=== PATIENT | male | born 1965 | race Caucasian/White ===

== ENCOUNTER 2019-03-23 21:37 | Observation (INO) ==
[2019-03-23] MEDS ORDERED: Isovue-370 500 ML BOTTLE IVP ONE (22:06)
[2019-03-23] MEDS ORDERED: Famotidine 20 MG/2 ML VIAL IVP ONE (22:08)
[2019-03-23] MEDS ORDERED: methylPREDNISolone 125 MG/2 ML VIAL IVP ONE (22:08)
[2019-03-23 22:59] LABS: Basophils # 0.1 K/mcL (0.0-0.2); Basophils % 0.6 %; Eosinophils # 0.5 K/mcL (0.0-0.6); Eosinophils % 5.4 %; Hematocrit 48.8 % (37.5-50.1); Hemoglobin 16.4 g/dL (12.9-16.9); Immature Granulocytes % 0.4 % (0-4); Lymphocytes # 3.1 K/mcL (0.6-4.6); Lymphocytes % 34.3 %; Mean Corpuscular HGB Conc 33.6 g/dL (31.6-35.5); Mean Corpuscular Hemoglobin 30.4 pg (28.0-33.3); Mean Corpuscular Volume 90.4 fL (83.0-100.0); Mean Platelet Volume 9.5 fL (9.4-12.4); Monocytes # 0.6 K/mcL (0.0-1.3); Monocytes % 6.3 %; Neutrophils # 4.8 K/mcL (1.6-8.9); Platelet Count 258 K/mcL (140-400); Red Cell Distribution Width 12.9 % (11.5-14.5); White Blood Count 9.1 K/mcL (4.3-11.1)
[2019-03-23 23:18] LABS: BUN/Creatinine Ratio 13 (6-26); Blood Urea Nitrogen 12 mg/dL (6-20); C-Reactive Protein 12 mg/L (Less than 10); Calcium 8.5 mg/dL (8.6-10.3); Carbon Dioxide 23 mEq/L (23-29); Chloride 106 mEq/L (98-107); Glucose 85 mg/dL (70-105); Osmolality,Calculated 289 (280-300); Potassium 3.8 mEq/L (3.5-5.1); Sodium 140 mEq/L (136-145); eGFR For African Americans > 60 (> 60); eGFR For Non-African Americans > 60 (> 60)
[2019-03-23] MEDS ORDERED: 0.9 % Sodium Chloride 1,000 ML IVC ONE (23:32)
[2019-03-24] MEDS ORDERED: Piperacillin/Tazobactam 3.375 GM in 0.9 % Sodium Chloride Mini Bag 100 ML IVPB ONE (00:22)
[2019-03-24] MEDS ORDERED: Naloxone 0.4 MG/ML INJ IVP PRN (02:48)
[2019-03-24] MEDS ORDERED: hydrOXYzine pamoate 25 MG CAPSULE PO PRN (02:50)
[2019-03-24 05:42] LABS: Hematocrit 48.9 % (37.5-50.1); Hemoglobin 16.4 g/dL (12.9-16.9); Mean Corpuscular HGB Conc 33.5 g/dL (31.6-35.5); Mean Corpuscular Hemoglobin 30.3 pg (28.0-33.3); Mean Corpuscular Volume 90.4 fL (83.0-100.0); Mean Platelet Volume 9.8 fL (9.4-12.4); Platelet Count 269 K/mcL (140-400); Red Blood Count 5.41 M/mcL (4.19-5.50); Red Cell Distribution Width 12.9 % (11.5-14.5); White Blood Count 7.6 K/mcL (4.3-11.1)
[2019-03-24 05:58] LABS: BUN/Creatinine Ratio 16 (6-26); Blood Urea Nitrogen 14 mg/dL (6-20); Calcium 8.7 mg/dL (8.6-10.3); Carbon Dioxide 24 mEq/L (23-29); Chloride 108 mEq/L (98-107); Glucose 147 mg/dL (70-105); Osmolality,Calculated 291 (280-300); Potassium 4.5 mEq/L (3.5-5.1); Sodium 139 mEq/L (136-145); eGFR For African Americans > 60 (> 60); eGFR For Non-African Americans > 60 (> 60)
[2019-03-24] MEDS: Piperacillin/Tazobactam 3.375 GM in 0.9 % Sodium Chloride Mini Bag 100 ML IVPB SCH ×2 (09:06→19:55)
[2019-03-24] MEDS: Gabapentin 300 MG CAPSULE PO SCH ×3 (09:06→21:06)
[2019-03-24] MEDS: BuPROPion XL (24 HR) 150 MG TABLET PO SCH (09:06)
[2019-03-24] MEDS: (Breo Ellipta 200-25 Mcg Inh) IH SCH (09:45)
[2019-03-24] MEDS ORDERED: *HR* LORazepam 1 MG TABLET PO PRN (19:05)
[2019-03-24] MEDS ORDERED: BuPROPion XL (24 HR) 150 MG TABLET PO SCH (21:00)
[2019-03-25] MEDS: Piperacillin/Tazobactam 3.375 GM in 0.9 % Sodium Chloride Mini Bag 100 ML IVPB SCH ×2 (08:57)
[2019-03-25] MEDS: Gabapentin 300 MG CAPSULE PO SCH ×2 (08:58→14:42)
[2019-03-25] MEDS: BuPROPion XL (24 HR) 150 MG TABLET PO SCH (08:59)
[2019-03-25] MEDS: (Breo Ellipta 200-25 Mcg Inh) IH SCH (09:22)
[2019-03-25 10:41] VITALS: BP 122/83
[2019-03-25] MEDS ORDERED: FLU Vac QV 19-20 (6Month+)/PF 0.5 ML SYRINGE IM ONE (12:44)
[2019-03-25] MEDS ORDERED: Aminoglycoside Consult 1 EACH MC ONE (15:49)
== END 2019-03-25 15:50 | disposition home or self-care (01) ==
LOC: 3ANU 21:37 → EMEROOARM 21:37 → SUATTDRO 03-24 01:47 → 3ANU 03-24 02:23
PROVIDERS: ADMIT Internal Medicine; ATTEND Student in an Organized Health Care Education/Training Program

== ENCOUNTER 2019-05-29 14:44 | Observation (INO) ==
[2019-05-29] MEDS ORDERED: Ampicillin/Sulbactam 3,000 MG in 0.9 % Sodium Chloride 100 ML IVPB ONE (16:56)
[2019-05-29] MEDS ORDERED: Vancomycin 1,000 MG VIAL IVPB ONE (16:56)
[2019-05-29 17:26] LABS: Basophils % 0.4 %; Eosinophils # 0.4 K/mcL (0.0-0.6); Eosinophils % 5.7 %; Hematocrit 48.6 % (37.5-50.1); Hemoglobin 16.5 g/dL (12.9-16.9); Immature Granulocytes % 0.1 % (0-4); Lymphocytes # 2.4 K/mcL (0.6-4.6); Lymphocytes % 32.7 %; Mean Corpuscular Hemoglobin 30.4 pg (28.0-33.3); Mean Corpuscular Volume 89.5 fL (83.0-100.0); Mean Platelet Volume 9.8 fL (9.4-12.4); Monocytes # 0.6 K/mcL (0.0-1.3); Monocytes % 8.7 %; Neutrophils # 3.8 K/mcL (1.6-8.9); Platelet Count 248 K/mcL (140-400); Red Blood Count 5.43 M/mcL (4.19-5.50); Red Cell Distribution Width 12.9 % (11.5-14.5); Segmented Neutrophils % 52.4 %; White Blood Count 7.3 K/mcL (4.3-11.1)
[2019-05-29 17:44] LABS: BUN/Creatinine Ratio 20 (6-26); Blood Urea Nitrogen 18 mg/dL (6-20); Calcium 9.2 mg/dL (8.6-10.3); Carbon Dioxide 26 mEq/L (23-29); Chloride 104 mEq/L (98-107); Glucose 91 mg/dL (70-105); Osmolality,Calculated 285 (280-300); Potassium 3.9 mEq/L (3.5-5.1); Sodium 137 mEq/L (136-145); eGFR For African Americans > 60 (> 60); eGFR For Non-African Americans > 60 (> 60)
[2019-05-29] MEDS ORDERED: hydrOXYzine pamoate 25 MG CAPSULE PO PRN (21:57)
[2019-05-29] MEDS ORDERED: Acetaminophen 325 MG TABLET PO PRN (22:00)
[2019-05-29] MEDS: Gabapentin 300 MG CAPSULE PO SCH (23:14)
[2019-05-29] MEDS: Melatonin 3 MG TABLET PO PRN (23:15)
[2019-05-30] MEDS: Ipratropium/Albuterol Neb 3 ML IH PRN ×2 (05:03→10:44)
[2019-05-30] MEDS ORDERED: BUSPIRONE HCL PO SCH (09:00)
[2019-05-30] MEDS: Gabapentin 300 MG CAPSULE PO SCH ×3 (09:22→21:44)
[2019-05-30] MEDS: Doxycycline 100 MG CAPSULE PO SCH ×2 (09:23→21:43)
[2019-05-30] MEDS: Budesonide/Formoterol 80/4.5 1 PUFF INH IH SCH (10:34)
[2019-05-30] MEDS: Piperacillin/Tazobactam 3.375 GM in 0.9 % Sodium Chloride Mini Bag 100 ML IVPB SCH ×2 (13:01→21:44)
[2019-05-30 13:21] LABS: Amphetamine Screen,Urine Negative ng/mL (Cutoff=1000); Barbiturate Screen,Urine Negative ng/mL (Cutoff=200); Benzodiazepines Screen,Urine Negative ng/mL (Cutoff=200); Cannabinoid Screen,Urine Negative ng/mL (Cutoff = 50); Cocaine Screen,Urine Negative ng/mL (Cutoff= 300); Opiate Screen,Urine Positive ng/mL (Cutoff=300); Phencyclidine Screen,Urine Negative ng/mL (Cutoff=25)
[2019-05-30] MEDS ORDERED: BuPROPion XL (24 HR) 150 MG TABLET PO SCH (21:00)
[2019-05-30] MEDS: Melatonin 3 MG TABLET PO PRN (21:43)
[2019-05-31 01:58] LABS: Basophils % 0.6 %; Eosinophils # 0.4 K/mcL (0.0-0.6); Eosinophils % 6.3 %; Hematocrit 46.6 % (37.5-50.1); Hemoglobin 15.5 g/dL (12.9-16.9); Immature Granulocytes % 0.1 % (0-4); Lymphocytes # 2.5 K/mcL (0.6-4.6); Lymphocytes % 37.8 %; Mean Corpuscular HGB Conc 33.3 g/dL (31.6-35.5); Mean Corpuscular Hemoglobin 30.3 pg (28.0-33.3); Mean Platelet Volume 10.7 fL (9.4-12.4); Monocytes # 0.6 K/mcL (0.0-1.3); Monocytes % 8.3 %; Neutrophils # 3.2 K/mcL (1.6-8.9); Platelet Count 248 K/mcL (140-400); Red Blood Count 5.12 M/mcL (4.19-5.50); Red Cell Distribution Width 12.9 % (11.5-14.5); Segmented Neutrophils % 46.9 %; White Blood Count 6.7 K/mcL (4.3-11.1)
[2019-05-31 02:17] LABS: BUN/Creatinine Ratio 15 (6-26); Blood Urea Nitrogen 16 mg/dL (6-20); Calcium 8.7 mg/dL (8.6-10.3); Carbon Dioxide 27 mEq/L (23-29); Chloride 107 mEq/L (98-107); Glucose 121 mg/dL (70-105); Magnesium 2.2 mg/dL (1.6-2.6); Osmolality,Calculated 294 (280-300); Phosphorous 4.1 mg/dL (2.7-4.5); Sodium 141 mEq/L (136-145); eGFR For African Americans > 60 (> 60); eGFR For Non-African Americans > 60 (> 60)
[2019-05-31] MEDS: Piperacillin/Tazobactam 3.375 GM in 0.9 % Sodium Chloride Mini Bag 100 ML IVPB SCH (06:09)
[2019-05-31 06:51] VITALS: BP 129/89
[2019-05-31] MEDS ORDERED: BuPROPion XL (24 HR) 150 MG TABLET PO SCH (09:00)
[2019-05-31] MEDS: Doxycycline 100 MG CAPSULE PO SCH (09:21)
[2019-05-31] MEDS: Gabapentin 300 MG CAPSULE PO SCH (09:21)
[2019-05-31] MEDS ORDERED: Vancomycin 1 EACH in 0.9 % Sodium Chloride 500 ML IVPB SCH (10:30)
[2019-05-31] MEDS: Budesonide/Formoterol 80/4.5 1 PUFF INH IH SCH (10:33)
[2019-05-31] MEDS ORDERED: Aminoglycoside Consult 1 EACH MC ONE (12:54)
== END 2019-05-31 12:55 | disposition home or self-care (01) ==
LOC: EMEROOARM 14:44 → 3ANU 14:44
PROVIDERS: ADMIT Internal Medicine; ATTEND Internal Medicine

== ENCOUNTER 2019-06-22 20:54 | Observation (INO) ==
[2019-06-22] MEDS ORDERED: Isovue-370 500 ML BOTTLE IVP ONE ×2 (21:17→21:46)
[2019-06-22 21:47] LABS: Basophils % 0.3 %; Eosinophils # 0.4 K/mcL (0.0-0.6); Eosinophils % 3.8 %; Hematocrit 50.7 % (37.5-50.1); Hemoglobin 17.9 g/dL (12.9-16.9); Immature Granulocytes % 0.3 % (0-4); Lymphocytes # 3.1 K/mcL (0.6-4.6); Lymphocytes % 29.3 %; Mean Corpuscular HGB Conc 35.3 g/dL (31.6-35.5); Mean Corpuscular Hemoglobin 30.6 pg (28.0-33.3); Mean Corpuscular Volume 86.7 fL (83.0-100.0); Mean Platelet Volume 9.8 fL (9.4-12.4); Monocytes # 0.6 K/mcL (0.0-1.3); Monocytes % 5.2 %; Neutrophils # 6.5 K/mcL (1.6-8.9); Platelet Count 286 K/mcL (140-400); Red Blood Count 5.85 M/mcL (4.19-5.50); Red Cell Distribution Width 13.1 % (11.5-14.5); Segmented Neutrophils % 61.1 %; White Blood Count 10.7 K/mcL (4.3-11.1)
[2019-06-22 21:54] LABS: Prothrombin Time 11.1 Seconds (9.4-12.1)
[2019-06-22 21:56] LABS: Activated Partial Thrombo Time 30.8 Seconds (26.0-36.0)
[2019-06-22 22:12] LABS: Alanine Aminotransferase 30 Units/L (7-52); Albumin 4.5 g/dL (3.5-5.7); Albumin/Globulin Ratio 1.7 (1.1-2.2); Alkaline Phosphatase 98 Units/L (34-104); Aspartate Amino Transferase 22 Units/L (13-39); BUN/Creatinine Ratio 19 (6-26); Bilirubin,Direct 0.1 mg/dL (0.0-0.2); Bilirubin,Indirect 0.3 mg/dL (0.0-1.0); Bilirubin,Total 0.4 mg/dL (0.3-1.0); Blood Urea Nitrogen 21 mg/dL (6-20); Calcium 9.4 mg/dL (8.6-10.3); Carbon Dioxide 22 mEq/L (23-29); Chloride 105 mEq/L (98-107); Globulin 2.6 g/dL (2.4-3.5); Glucose 146 mg/dL (70-105); Magnesium 1.9 mg/dL (1.6-2.6); Osmolality,Calculated 290 (280-300); Phosphorous 3.3 mg/dL (2.7-4.5); Sodium 137 mEq/L (136-145); Total Protein 7.1 g/dL (6.4-8.9); Troponin I < 0.03 ng/mL (< 0.04); eGFR For African Americans > 60 (> 60); eGFR For Non-African Americans > 60 (> 60)
[2019-06-22] MEDS ORDERED: 0.9 % Sodium Chloride 1,000 ML IVC ONE (23:51)
[2019-06-23] MEDS ORDERED: Naloxone 0.4 MG/ML INJ IVP PRN (01:36)
[2019-06-23] MEDS ORDERED: Acetaminophen 325 MG TABLET PO PRN (01:36)
[2019-06-23] MEDS ORDERED: Mag Hydrox/Al Hydrox/Simeth 30 ML UDC PO PRN (01:36)
[2019-06-23 02:20] LABS: Basophils # 0.1 K/mcL (0.0-0.2); Basophils % 0.5 %; Eosinophils # 0.4 K/mcL (0.0-0.6); Eosinophils % 3.5 %; Hemoglobin 17.7 g/dL (12.9-16.9); Immature Granulocytes % 0.3 % (0-4); Lymphocytes # 3.2 K/mcL (0.6-4.6); Lymphocytes % 31.7 %; Mean Corpuscular HGB Conc 34.7 g/dL (31.6-35.5); Mean Corpuscular Hemoglobin 30.4 pg (28.0-33.3); Mean Corpuscular Volume 87.5 fL (83.0-100.0); Mean Platelet Volume 10.5 fL (9.4-12.4); Monocytes # 0.5 K/mcL (0.0-1.3); Monocytes % 5.2 %; Neutrophils # 5.9 K/mcL (1.6-8.9); Platelet Count 229 K/mcL (140-400); Red Blood Count 5.83 M/mcL (4.19-5.50); Red Cell Distribution Width 13.2 % (11.5-14.5); Segmented Neutrophils % 58.8 %; White Blood Count 10.1 K/mcL (4.3-11.1)
[2019-06-23 02:32] LABS: BUN/Creatinine Ratio 20 (6-26); Blood Urea Nitrogen 18 mg/dL (6-20); C-Reactive Protein 21 mg/L (Less than 10); Calcium 9.1 mg/dL (8.6-10.3); Carbon Dioxide 21 mEq/L (23-29); Chloride 105 mEq/L (98-107); Glucose 122 mg/dL (70-105); Osmolality,Calculated 281 (280-300); Sodium 134 mEq/L (136-145); eGFR For African Americans > 60 (> 60); eGFR For Non-African Americans > 60 (> 60)
[2019-06-23 04:44] LABS: Bilirubin,Urine Negative (Negative); Blood,Urine Negative (Negative); Clarity,Urine Clear (Clear); Color,Urine Yellow (Yellow); Glucose,Urine (UA) Normal (Normal); Ketones,Urine Negative (Negative); Leukocyte Esterase,Urine Negative (Negative); Nitrite,Urine Negative (Negative); PH,Urine 5.5 pH Units (5.0-8.0); Protein,Urine Negative (Neg-Trace); Specific Gravity,Urine > 1.030 (1.010-1.025); Urobilinogen,Urine Normal (Normal)
[2019-06-23] MEDS ORDERED: *HR* Heparin 5,000 UNIT/ML VIAL SQ SCH (06:00)
[2019-06-23] MEDS ORDERED: Piperacillin/Tazobactam 3.375 GM in 0.9 % Sodium Chloride Mini Bag 100 ML IVPB SCH (08:00)
[2019-06-23] MEDS ORDERED: BuPROPion XL (24 HR) 150 MG TABLET PO SCH ×2 (09:00→21:00)
[2019-06-23] MEDS ORDERED: Gabapentin 300 MG CAPSULE PO SCH (09:00)
[2019-06-23] MEDS ORDERED: Budesonide/Formoterol 160/4.5 1 PUFF INH IH SCH (10:00)
[2019-06-23 10:47] VITALS: BP 105/60
[2019-06-23 11:33] LABS: Estimated Average Glucose 117 mg/dl
== END 2019-06-23 11:10 | disposition home or self-care (01) ==
LOC: EMEROOARM 20:54 → CDU 20:54
PROVIDERS: ADMIT Family Medicine; ATTEND Family Medicine

== ENCOUNTER 2019-08-04 02:46 | Observation (INO) ==
[2019-08-04] MEDS ORDERED: Famotidine 20 MG/2 ML VIAL IVP ONE (02:55)
[2019-08-04] MEDS ORDERED: 0.9 % Sodium Chloride 1,000 ML IVC ONE ×2 (02:55→05:21)
[2019-08-04] MEDS ORDERED: EPINEPHrine 1 MG/ML VIAL IM ONE (02:55)
[2019-08-04] MEDS ORDERED: methylPREDNISolone 125 MG/2 ML VIAL IVP ONE (02:55)
[2019-08-04] MEDS ORDERED: TRANEXAMIC ACID NS ONE (03:01)
[2019-08-04] MEDS ORDERED: WATER FOR INJ NS ONE (03:01)
[2019-08-04 03:08] LABS: Basophils # 0.1 K/mcL (0.0-0.2); Basophils % 0.5 %; Eosinophils # 0.5 K/mcL (0.0-0.6); Hematocrit 52.6 % (37.5-50.1); Hemoglobin 17.1 g/dL (12.9-16.9); Immature Granulocytes % 0.2 % (0-4); Lymphocytes # 3.2 K/mcL (0.6-4.6); Mean Corpuscular HGB Conc 32.5 g/dL (31.6-35.5); Mean Corpuscular Hemoglobin 29.9 pg (28.0-33.3); Mean Platelet Volume 9.9 fL (9.4-12.4); Monocytes # 0.8 K/mcL (0.0-1.3); Monocytes % 6.7 %; Platelet Count 303 K/mcL (140-400); Red Blood Count 5.72 M/mcL (4.19-5.50); Red Cell Distribution Width 12.9 % (11.5-14.5); Segmented Neutrophils % 63.6 %; White Blood Count 12.6 K/mcL (4.3-11.1)
[2019-08-04 03:23] LABS: Alanine Aminotransferase 29 Units/L (7-52); Albumin 4.3 g/dL (3.5-5.7); Albumin/Globulin Ratio 1.6 (1.1-2.2); Alkaline Phosphatase 88 Units/L (34-104); Aspartate Amino Transferase 22 Units/L (13-39); BUN/Creatinine Ratio 23 (6-26); Bilirubin,Total 0.4 mg/dL (0.3-1.0); Blood Urea Nitrogen 21 mg/dL (6-20); Calcium 9.2 mg/dL (8.6-10.3); Carbon Dioxide 27 mEq/L (23-29); Chloride 103 mEq/L (98-107); Globulin 2.7 g/dL (2.4-3.5); Glucose 111 mg/dL (70-105); Osmolality,Calculated 288 (280-300); Potassium 4.1 mEq/L (3.5-5.1); Sodium 137 mEq/L (136-145); eGFR For African Americans > 60 (> 60); eGFR For Non-African Americans > 60 (> 60)
[2019-08-04] MEDS ORDERED: Tranexamic Acid 1,000 MG/10 ML VIAL IR ONE (04:00)
[2019-08-04] MEDS ORDERED: Naloxone 0.4 MG/ML INJ IVP PRN (05:21)
[2019-08-04] MEDS ORDERED: cefTRIAXone 1,000 MG in 0.9 % Sodium Chloride Mini Bag 100 ML IVPB ONE (05:30)
[2019-08-04 05:44] LABS: C-Reactive Protein 9 mg/L (Less than 10)
[2019-08-04] MEDS ORDERED: *HR* Heparin 5,000 UNIT/ML VIAL SQ SCH (06:00)
[2019-08-04 07:47] VITALS: BP 111/73
[2019-08-04] MEDS ORDERED: Acetaminophen 325 MG TABLET PO PRN (08:23)
[2019-08-04] MEDS ORDERED: predniSONE 20 MG TABLET PO SCH (09:00)
[2019-08-04] MEDS ORDERED: Famotidine 20 MG/2 ML VIAL IVP SCH (18:00)
== END 2019-08-04 10:19 | disposition home or self-care (01) ==
LOC: EMEROOARM 02:46 → 3BNU 02:46 → SUATTDRO 04:38 → 3BNU 05:03 → 2ANU 05:14
PROVIDERS: ADMIT Internal Medicine; ATTEND Internal Medicine